=== PATIENT | male | born 1940 | race Caucasian/White ===

== ENCOUNTER → 2018-10-29 | Outpatient (CLI) | payer MEDICARE, BC ==
[~2018-10-29] MED LIST: AMLO-150 PO; ASPI-515 PO; ASPI325T17 PO; ATOR10TA9 PO; ESCI10TA10 PO; ESOM40CA PO; GABA600T7 PO; HYDR-3245 PO; IRBE300T40 PO; LEVO100T5 PO; MELO15TA24 PO; TAMS0.4C2 PO
== END | disposition home or self-care (01) ==
LOC: RAD 09:39
PROVIDERS: ATTEND Nurse Practitioner Critical Care Medicine
DX: M47.812 Spondylosis without myelopathy or radiculopathy, cervical region (principal); G31.89 Other specified degenerative diseases of nervous system
CPT/HCPCS: 70450; 72050